=== PATIENT | male | born 1995 | race Caucasian/White ===

== ENCOUNTER 2017-08-08 00:13 | Emergency (ER) | payer OTHER ==
[2017-08-08] MEDS ORDERED: Ondansetron INJ* 2 MG/ML VIAL IV ONE (01:49)
[2017-08-08] MEDS ORDERED: NS 0.9% 1000 ML* 1,000 ML IV ONE (01:49)
[2017-08-08] MEDS ORDERED: Ketorolac INJ* 30 MG/ML 1 ML VIAL IV ONE (01:49)
[2017-08-08] MEDS ORDERED: Morphine INJ* 4 MG/ML 1 ML CARPUJECT IV ONE (01:50)
[2017-08-08] MEDS ORDERED: DOXYcycline CAP(*) 100 MG PO ONE (02:16)
--- NOTE | 2017-08-08 02:59 | ED ---
Bayron Gomez Alfonso, scribed for Magda Ibrahim MD on 08/08/17 at 0140 . Abdominal Pain/Male - HPI Summary HPI Summary: This patient is a 22 year old M presenting to [facility] with a chief complaint of right testicular pain since 3 weeks ago. The pain resolved, but became worse since 1899 today. The patient rates the pain 8/10 in severity. Symptoms alleviated by nothing. Patient reports right testicular swelling. Patient denies penile discharge, and dysuria. Marijuana use. He denies recent heavy lifting, and unprotected sex. - History of Current Complaint Chief Complaint: EDUrogenitalProblems Stated Complaint: RIGHT GROIN PAIN Time Seen by Provider: 08/08/17 01:15 Hx Obtained From: Patient Onset/Duration: Sudden Onset, Lasting Weeks - 3, Worse Since - 1899 today Timing: Constant Severity Currently: Moderate Pain Intensity: 8 Pain Scale Used: 0-10 Numeric Location: Other - right testicular Alleviating Factor(s): Nothing Associated Signs And Symptoms: Positive: Other - reports right testicular swelling. Patient denies penile discharge, and dysuria. - Allergies/Home Medications Allergies/Adverse Reactions: Allergies Allergy/AdvReac Type Severity Reaction Status Date / Time Amoxicillin Allergy Swelling Verified 08/08/17 00:27 Penicillins [PCN] Allergy Swelling Verified 08/08/17 00:27 PMH/Surg Hx/FS Hx/Imm Hx Endocrine/Hematology History: Denies: Hx Blood Disorders, Hx Diabetes, Hx Thyroid Disease Cardiovascular History: Denies: Hx Hypertension Respiratory History: Reports: Hx Asthma Denies: Hx Chronic Obstructive Pulmonary Disease (COPD) GI History: Denies: Hx Ulcer - Surgical History Surgery Procedure, Year, and Place: orthopedic and dental Infectious Disease History: No Infectious Disease History: Reports: Hx Clostridium Difficile - 2015 Denies: Hx Hepatitis, Hx Human Immunodeficiency Virus (HIV), Hx of Known/ Suspected MRSA, Hx Shingles, Hx Tuberculosis, Hx Known/Suspected VRE, Hx Known/ Suspected VRSA, History Other Infectious Disease, Traveled Outside the [place] in Last 30 Days - Family History Known Family History: Positive: Other - R&NC Family History: no medical issues in family lineage - Social History Alcohol Use: None Substance Use Type: Reports: Marijuana Smoking Status (MU): Never Smoked Tobacco Review of Systems Negative: Fever Positive: other - right testicular pain, right testicular swelling; negative penile discharge. Negative: dysuria All Other Systems Reviewed And Are Negative: Yes Physical Exam - Summary Physical Exam Summary: General: Well appearing, no pain distress Skin: Warm, Skin Color Reflects Adequate Perfusion, Dry Eyes: EOMI, JAX ENT: Pharynx normal, TMs normal Neck: Supple, nontender Respiratory: CTA, breath sounds present, no rhonchi, no wheezes, no rales Cardiovascular: RRR, no murmur, no rub, no gallop Abdomen: Soft, nontender, Non-distended, no guarding, no rebound Pelvic: Right Testicle: epididymis tenderness and normal size. Left Testicle: normal. Bowel: Present Musculoskeletal: YEMI, No edema Neuro: Sensory/motor intact, A&Ox3, CN intact 2-12 Psych: Affect/mood appropriate Triage Information Reviewed: Yes Vital Signs On Initial Exam: Initial Vitals Temp Pulse Resp BP Pulse Ox 98.5 F 81 18 111/73 98 08/08/17 00:22 08/08/17 00:22 08/08/17 00:22 08/08/17 00:22 08/08/17 00:22 Vital Signs Reviewed: Yes - [place] Coma Scale Coma Scale Total: 15 Diagnostics - Vital Signs Vital Signs Temp Pulse Resp BP Pulse Ox 08/08/17 00:22 98.5 F 81 18 111/73 98 - Laboratory Lab Statement: Any lab studies that have been ordered have been reviewed, and results considered in the medical decision making process. - Additional Comments Diagnostic Additional Comments: Scrotum US reveals, per radiologist, there is a tiny hyperechoic focus in the superior pole of the right testicle. Could represent a tiny calcification or tiny fatty deposit. There are two right epididymal cysts measuring 2 mm and 3 mm respectively. ED physician has reviewed this radiology report and agrees. Abdominal Pain Fem Course/Dx - Course Course Of Treatment: 22 yo male with recent pain in same testicle a week or two ago and had a neg sti workup and was placed on doxy with resolution of pain, pain that started tonight was much worse, neg u/s of testicle here but definite pain over epididymis. Pt will be started on pain meds and doxy again and f/u with [facility]/urology - Diagnoses Provider Diagnoses: Epididymitis Discharge - Discharge Plan Condition: Stable Disposition: HOME Prescriptions: DOXYcycline CAP(*) [DOXYcycline 100MG CAP(*)] 100 mg PO BID #28 cap HYDROcodone/ACETAMIN 5-325 MG* [[place] 5-325 TAB*] 1 tab PO Q8H PRN #9 tab MDD 3 PRN Reason: Pain Patient Education Materials: Testicle Pain (ED), Epididymitis (ED) Referrals: [facility] - Rip MARCUM [Primary Care Provider] - 3 Days Additional Instructions: RETURN TO THE EMERGENCY DEPARTMENT FOR CHANGING OR WORSENING SYMPTOMS. The documentation as recorded by the Bayron valdes Alfonso accurately reflects the service I personally performed and the decisions made by me, Magda Ibrahim MD.
[2017-08-08 03:28] VITALS: BP 116/75
--- NOTE | 2017-08-08 08:11 | RAD ---
INDICATION: Right testicular pain COMPARISON: None TECHNIQUE: Duplex interrogation of the scrotum was performed. FINDINGS: Testicles: The testicles are Normal in size size. There is at least one tiny right-sided testicular calcification consistent with testicular microlithiasis. This represents an incidental finding. There is no evidence of testicular mass. There is symmetric flow on Doppler interrogation. There is no evidence of torsion.. The right testis measures 4.1 x 2.2 x 2.9 cm and the left 4.8 x 2.2 x 2.2 cm. There is symmetric flow on Doppler interrogation. Epididymides: The epididymides are normal in size. There are several small right-sided epididymal cysts, one measuring 0.2 cm and the other 0.3 cm. There is symmetric flow on Doppler interrogation. The right epididymal head measures 1.0 x 1.5 cm and the left 1.1 x 1.5 cm. Hydroceles: None. Varicoceles: None. Other: None. IMPRESSION: NO EVIDENCE OF TESTICULAR MASS OR TORSION. TINY RIGHT-SIDED EPIDIDYMAL CYSTS.
== END 2017-08-08 03:32 | disposition home or self-care (01) ==
LOC: ED 00:13
DX: N45.1 Epididymitis (principal); J45.909 Unspecified asthma, uncomplicated; F12.90 Cannabis use, unspecified, uncomplicated
CPT/HCPCS: 76870; 96361; 96374; 96375; 99285; A9270-GY; J1885; J2270; J2405

== ENCOUNTER 2017-10-12 23:52 | Emergency (ER) | payer OTHER ==
[2017-10-12 23:58] VITALS: BP 130/61
== END 2017-10-13 02:41 | disposition left against medical advice (07) ==
LOC: ED 23:52
DX: R10.9 Unspecified abdominal pain (principal); Z53.21 Procedure and treatment not carried out due to patient leaving prior to being seen by health care provider

== ENCOUNTER 2017-10-13 12:19 | Emergency (ER) | payer OTHER ==
[2017-10-13 13:44] VITALS: BP 114/63
--- NOTE | 2017-10-13 14:35 | UC ---
UC General HPI - HPI Summary HPI Summary: EIGHT DAYS AGO DIAGNOSED WITH MESENTERIC ADENITIS; DISCHARGED FROM HOSPITAL ON SATURDAY. YESTERDAY HAD VOMITING AND DIARRHEA. VOMITING CHUNKS OF BLOOD YESTERDAY. HISTORY OF CDIFF 05/2016. - History of Current Complaint Chief Complaint: UCGI Stated Complaint: VOMITING, AND DIARRHEA Time Seen by Provider: 10/13/17 13:58 Hx Obtained From: Patient Onset/Duration: Gradual Onset, Lasting Days Onset Severity: Moderate Current Severity: Mild Pain Intensity: 0 Associated Signs & Symptoms: Positive: Diarrhea, Fever, Vomiting - HEMATEMESIS. Negative: Cough, Chest Pain - Allergy/Home Medications Allergies/Adverse Reactions: Allergies Allergy/AdvReac Type Severity Reaction Status Date / Time Amoxicillin Allergy Swelling Verified 10/13/17 13:44 Penicillins [PCN] Allergy Swelling Verified 10/13/17 13:44 Home Medications: Home Medications Escitalopram (NF) [Lexapro 20 mg (NF)] 20 mg PO DAILY 10/13/17 [History Confirmed 10/13/17] Ibuprofen TAB* [Motrin TAB* 800 MG] 800 mg PO Q8H PRN 10/13/17 [History Confirmed 10/13/17] PMH/Surg Hx/FS Hx/Imm Hx Previously Healthy: Yes - Surgical History Surgical History: Yes Surgery Procedure, Year, and Place: dental. appendix removed April 2017 - Family History Known Family History: Positive: None, Other - R&NC Family History: no medical issues in family lineage - Social History Occupation: Student Lives: With Family Alcohol Use: Occasionally Substance Use Type: Marijuana Smoking Status (MU): Never Smoked Tobacco - Immunization History Most Recent Influenza Vaccination: 2014 Most Recent Tetanus Shot: up to date Most Recent Pneumonia Vaccination: never Review of Systems Constitutional: Fever Skin: Negative Eyes: Negative ENT: Negative Respiratory: Negative Gastrointestinal: Vomiting - HEMATEMESIS, Diarrhea, Nausea Genitourinary: Negative Motor: Negative Neurovascular: Negative Musculoskeletal: Negative Neurological: Negative Psychological: Negative Is Patient Immunocompromised?: No All Other Systems Reviewed And Are Negative: Yes Physical Exam Triage Information Reviewed: Yes Appearance: No Pain Distress, Well-Nourished, Ill-Appearing Vital Signs: Initial Vital Signs Temp 99.1 F 10/13/17 13:36 Pulse 85 10/13/17 13:36 Resp 16 10/13/17 13:36 BP 114/63 10/13/17 13:36 Pulse Ox 100 12/03/17 13:36 Vital Signs Reviewed: Yes Eye Exam: Normal ENT Exam: Normal ENT: Positive: Normal ENT inspection, Hearing grossly normal, Pharynx normal, TMs normal Dental Exam: Normal Neck exam: Normal Neck: Positive: Supple, Nontender, No Lymphadenopathy Respiratory Exam: Normal Respiratory: Positive: Chest non-tender, Lungs clear, Normal breath sounds, No respiratory distress, No accessory muscle use Cardiovascular Exam: Normal Cardiovascular: Positive: RRR, No Murmur, Pulses Normal, Brisk Capillary Refill Abdomen Description: Positive: No Organomegaly, Soft. Negative: Nontender - DIFFUSELY TENDER Musculoskeletal Exam: Normal Musculoskeletal: Positive: Strength Intact, ROM Intact Neurological Exam: Normal Neurological: Positive: Alert Psychological Exam: Normal Skin Exam: Normal Course/Dx - Differential Dx - Multi-Symptom Differential Diagnoses: Metabolic Abnormality, Sepsis Provider Diagnoses: HEMATEMESIS; GASTROENTERITIS - Physician Notifications Instructed by Provider To: MD Will See In ED Discharge - Discharge Plan Condition: Stable Disposition: OTHER Discharge Disposition Comment: ADVISED TO GO TO ED, REFUSED AMBULANCE Patient Education Materials: Gastroenteritis (ED), Hematemesis (ED) Referrals: [facility] - Rip MARCUM [Primary Care Provider] - Additional Instructions: YOU HAVE REFUSED THE OFFER OF AMBULANCE TRANSPORT AND HAVE ELECTED TO GO TO THE EMERGENCY DEPARTMENT BY PRIVATE CAR. YOU ARE ADVISED TO PROCEED SAFELY, BUT DIRECTLY TO THE EMERGENCY DEPARTMENT FOR CONTINUED EVALUATION.
== END 2017-10-13 14:15 ==
LOC: UCEAST 12:19
DX: K52.9 Noninfective gastroenteritis and colitis, unspecified (principal); K92.0 Hematemesis
CPT/HCPCS: 99212; G0463

== ENCOUNTER 2017-10-13 14:33 | Emergency (ER) | payer OTHER ==
[2017-10-13] MEDS ORDERED: Morphine INJ* 4 MG/ML 1 ML CARPUJECT IV ONE ×2 (16:53→19:14)
[2017-10-13] MEDS ORDERED: Ondansetron INJ* 2 MG/ML VIAL IV ONE (16:53)
[2017-10-13] MEDS: NS 0.9% 1000 ML* 2,000 ML IV ONE (17:17)
[2017-10-13 17:33] LABS: Hematocrit 45 % (42-52); Hemoglobin 15.5 g/dl (14.0-18.0); Mean Corpuscular HGB Conc 35 g/dl (31-36); Mean Corpuscular Hemoglobin 31 pg (27-31); Mean Corpuscular Volume 90 fL (80-94); Mean Platelet Volume 8 um3 (7.4-10.4); Red Cell Distribution Width 13 % (10.5-15); White Blood Count 4.6 10^3/ul (3.5-10.8)
[2017-10-13 17:48] LABS: ALT 14 U/L (7-52); AST 19 U/L (13-39); Albumin 4.2 g/dL (3.2-5.2); Alkaline Phosphatase 56 U/L (34-104); Amylase 27 U/L (29-103); Anion Gap 8 mmol/L (2-11); Blood Urea Nitrogen 11 mg/dL (6-24); C Reactive Protein 9.56 mg/L (< 5.00); CO2 Carbon Dioxide 27 mmol/L (22-32); Chloride 101 mmol/L (101-111); EGFR African American 122.5 (>60); EGFR Non-African American 95.3 (>60); Globulin 2.9 g/dL (2-4); Glucose 92 mg/dL (70-100); Lipase < 10 U/L (11.0-82.0); Sodium 136 mmol/L (133-145); Total Protein 7.1 g/dL (6.4-8.9)
[2017-10-13 17:59] LABS: Urine Bacteria Absent (Absent); Urine Bilirubin Negative (Negative); Urine Glucose Negative (Negative); Urine Nitrite Negative (Negative)
[2017-10-13] MEDS ORDERED: Potassium Chlor TAB* 20 MEQ TAB.ER PO ONE (18:37)
--- NOTE | 2017-10-13 21:51 | ED ---
Owen Gomez Nikita, scribed for Shamar Gary MD on 10/13/17 at 2149 . Progress - Progress Note Progress Note: pt has not been able to provide stool sample for whole duration of stay in ED, no episodes of diarrhea here in ED. Because pt requests discharge at this time and feels well, pt given prescription for empiric vancomycin in case pt becomes symptomatic at home and encouraged to return to ED immediately. Also instructed to follow up with GI clinic for further workup of mild episgastric abdominal pain. Agrees to and understands dc instructions. Course/Dx - Diagnoses Provider Diagnoses: Diarrhea The documentation as recorded by the Owen valdes Nikita accurately reflects the service I personally performed and the decisions made by Abdirahman chapin Dong, MD.
[2017-10-13 22:03] VITALS: BP 119/40
--- NOTE | 2017-10-15 15:19 | ED ---
Alex Gomez Gabriel, scribed for Josiah Flores MD on 10/13/17 at 1651 . Abdominal Pain/Male - HPI Summary HPI Summary: This patient is a 22 year old M presenting to [facility] with a chief complaint of abd pain since the past two days. Patient reports diarrhea, vomiting (w/ black chunks), and fever. Pt also states that he has not been able to keep food down recently. Patient was sent to ED after being seen at [facility]. Also he has a history of CDIF. . - History of Current Complaint Hx Obtained From: Patient Onset/Duration: Still Present Timing: Constant Pain Intensity: 7 Pain Scale Used: 0-10 Numeric Associated Signs And Symptoms: Positive: Fever, Vomiting, Diarrhea <Josiah Flores - Last Filed: 10/13/17 19:55> <Shamar Gary - Last Filed: 10/13/17 21:49> - History of Current Complaint Chief Complaint: EDAbdPain Stated Complaint: ABD PAIN,V/D-SENT FROM [facility] Time Seen by Provider: 10/13/17 16:33 - Allergies/Home Medications Allergies/Adverse Reactions: Allergies Allergy/AdvReac Type Severity Reaction Status Date / Time Amoxicillin Allergy Swelling Verified 10/13/17 13:44 Penicillins [PCN] Allergy Swelling Verified 10/13/17 13:44 PMH/Surg Hx/FS Hx/Imm Hx Previously Healthy: No Endocrine/Hematology History: Denies: Hx Blood Disorders, Hx Diabetes, Hx Thyroid Disease Cardiovascular History: Denies: Hx Hypertension Respiratory History: Reports: Hx Asthma Denies: Hx Chronic Obstructive Pulmonary Disease (COPD) GI History: Denies: Hx Ulcer - Surgical History Surgery Procedure, Year, and Place: dental. appendix removed April 2017 Infectious Disease History: Yes Infectious Disease History: Reports: Hx Clostridium Difficile - 2016 Denies: Hx Hepatitis, Hx Human Immunodeficiency Virus (HIV), Hx of Known/ Suspected MRSA, Hx Shingles, Hx Tuberculosis, Hx Known/Suspected VRE, Hx Known/ Suspected VRSA, History Other Infectious Disease, Traveled Outside the [place] in Last 30 Days - Family History Known Family History: Positive: Other - R&NC Family History: no medical issues in family lineage - Social History Alcohol Use: Occasionally Substance Use Type: Reports: Marijuana Smoking Status (MU): Never Smoked Tobacco <Josiah Flores - Last Filed: 10/13/17 19:55> Review of Systems Positive: Fever Positive: Abdominal Pain, Vomiting - black chunks , Diarrhea All Other Systems Reviewed And Are Negative: Yes <Josiah Flores - Last Filed: 10/13/17 19:55> Physical Exam - Summary Physical Exam Summary: VITAL SIGNS: Reviewed. GENERAL: Patient is a well-developed and nourished male who is lying comfortable in the stretcher. ~Patient is not in any acute respiratory distress. HEAD AND FACE: Normocephalic and atraumatic. EYES: PERRLA, EOMI x 2, No injected conjunctiva. EARS: Hearing grossly intact. Ear canals and tympanic membranes are WNL. MOUTH: Oropharynx within normal limits. NECK: Supple, trachea is midline, no adenopathy, no JVD. CHEST: Symmetric, no tenderness at palpation LUNGS: Clear to auscultation bilaterally. No wheezing or crackles. CVS: RRR, S1 and S2 present, no murmurs or gallops appreciated. ABDOMEN: Soft, diffuse abdominal tenderness. No signs of distention. Positive bowel sounds. No rebound no guarding, and no masses palpated. No abdominal bruit or pulsations. EXTREMITIES: FROM in all major joints, no edema, no cyanosis or clubbing. NEURO: Alert and oriented x 3. No acute neurological deficits. Speech is normal. SKIN: Dry and warm Triage Information Reviewed: Yes Vital Signs On Initial Exam: Initial Vitals Temp Pulse Resp BP Pulse Ox 98.3 F 82 15 120/67 98 10/13/17 14:36 10/13/17 14:36 10/13/17 14:36 10/13/17 14:36 10/13/17 14:36 Vital Signs Reviewed: Yes - [place] Coma Scale Coma Scale Total: 15 <Josiah Flores - Last Filed: 10/13/17 19:55> Vital Signs On Initial Exam: Initial Vitals Temp Pulse Resp BP Pulse Ox 36.8 C 82 15 120/67 98 10/13/17 14:36 10/13/17 14:36 10/13/17 14:36 10/13/17 14:36 10/13/17 14:36 <Shamar Gary - Last Filed: 10/13/17 21:49> Diagnostics - Vital Signs Vital Signs Temp Pulse Resp BP Pulse Ox 10/13/17 14:36 98.3 F 82 15 120/67 98 - Laboratory Result Diagrams: 10/13/17 17:20 10/13/17 17:20 Lab Statement: Any lab studies that have been ordered have been reviewed, and results considered in the medical decision making process. <Josiah Flores - Last Filed: 10/13/17 19:55> - Vital Signs Vital Signs Temp Pulse Resp BP Pulse Ox 10/13/17 19:24 17 10/13/17 19:00 66 111/54 98 10/13/17 18:30 63 115/70 99 10/13/17 18:00 55 117/59 88 10/13/17 17:30 65 109/69 98 10/13/17 17:22 63 100 10/13/17 17:21 112/61 10/13/17 17:16 16 10/13/17 14:36 36.8 C 82 15 120/67 98 - Laboratory Lab Results: Lab Results 10/13/17 10/13/17 10/13/17 Range/Units 17:20 17:20 17:20 WBC 4.6 (3.5-10.8) 10^3/ul RBC 5.00 (4.0-5.4) 10^6/ul Hgb 15.5 (14.0-18.0) g/dl Hct 45 (42-52) % MCV 90 (80-94) fL MCH 31 (27-31) pg MCHC 35 (31-36) g/dl RDW 13 (10.5-15) % Plt Count 186 (150-450) 10^3/ul MPV 8 (7.4-10.4) um3 Neut % (Auto) 52.7 (38-83) % Lymph % (Auto) 21.0 L (25-47) % [place] % (Auto) 21.7 H (1-9) % Eos % (Auto) 4.2 (0-6) % Baso % (Auto) 0.4 (0-2) % Absolute Neuts (auto) 2.4 (1.5-7.7) 10^3/ul Absolute Lymphs (auto) 1.0 (1.0-4.8) 10^3/ul Absolute Monos (auto) 1.0 H (0-0.8) 10^3/ul Absolute Eos (auto) 0.2 (0-0.6) 10^3/ul Absolute Basos (auto) 0 (0-0.2) 10^3/ul Absolute Nucleated RBC 0 10^3/ul Nucleated RBC % 0 Sodium 136 (133-145) mmol/L Potassium 3.0 L (3.5-5.0) mmol/L Chloride 101 (101-111) mmol/L Carbon Dioxide 27 (22-32) mmol/L Anion Gap 8 (2-11) mmol/L BUN 11 (6-24) mg/dL Creatinine 1.00 (0.67-1.17) mg/dL Est GFR ( Amer) 122.5 (>60) Est GFR (Non-Af Amer) 95.3 (>60) BUN/Creatinine Ratio 11.0 (8-20) Glucose 92 (70-100) mg/dL Lactic Acid 1.6 (0.5-2.0) mmol/L Calcium 9.0 (8.6-10.3) mg/dL Total Bilirubin 0.80 (0.2-1.0) mg/dL AST 19 (13-39) U/L ALT 14 (7-52) U/L Alkaline Phosphatase 56 (34-104) U/L C-Reactive Protein 9.56 H (< 5.00) mg/L Total Protein 7.1 (6.4-8.9) g/dL Albumin 4.2 (3.2-5.2) g/dL Globulin 2.9 (2-4) g/dL Albumin/Globulin Ratio 1.4 (1-3) Amylase 27 L (29-103) U/L Lipase < 10 L (11.0-82.0) U/L Urine Color Urine Appearance Urine pH (5-9) Ur Specific Cushing (1.010-1.030) Urine Protein (Negative) Urine Ketones (Negative) Urine Blood (Negative) Urine Nitrate (Negative) Urine Bilirubin (Negative) Urine Urobilinogen (Negative) Ur Leukocyte Esterase (Negative) Urine WBC (Auto) (Absent) Urine RBC (Auto) (Absent) Urine Bacteria (Absent) Urine Glucose (Negative) 10/13/17 Range/Units 17:40 WBC (3.5-10.8) 10^3/ul RBC (4.0-5.4) 10^6/ul Hgb (14.0-18.0) g/dl Hct (42-52) % MCV (80-94) fL MCH (27-31) pg MCHC (31-36) g/dl RDW (10.5-15) % Plt Count (150-450) 10^3/ul MPV (7.4-10.4) um3 Neut % (Auto) (38-83) % Lymph % (Auto) (25-47) % [place] % (Auto) (1-9) % Eos % (Auto) (0-6) % Baso % (Auto) (0-2) % Absolute Neuts (auto) (1.5-7.7) 10^3/ul Absolute Lymphs (auto) (1.0-4.8) 10^3/ul Absolute Monos (auto) (0-0.8) 10^3/ul Absolute Eos (auto) (0-0.6) 10^3/ul Absolute Basos (auto) (0-0.2) 10^3/ul Absolute Nucleated RBC 10^3/ul Nucleated RBC % Sodium (133-145) mmol/L Potassium (3.5-5.0) mmol/L Chloride (101-111) mmol/L Carbon Dioxide (22-32) mmol/L Anion Gap (2-11) mmol/L BUN (6-24) mg/dL Creatinine (0.67-1.17) mg/dL Est GFR ( Amer) (>60) Est GFR (Non-Af Amer) (>60) BUN/Creatinine Ratio (8-20) Glucose (70-100) mg/dL Lactic Acid (0.5-2.0) mmol/L Calcium (8.6-10.3) mg/dL Total Bilirubin (0.2-1.0) mg/dL AST (13-39) U/L ALT (7-52) U/L Alkaline Phosphatase (34-104) U/L C-Reactive Protein (< 5.00) mg/L Total Protein (6.4-8.9) g/dL Albumin (3.2-5.2) g/dL Globulin (2-4) g/dL Albumin/Globulin Ratio (1-3) Amylase (29-103) U/L Lipase (11.0-82.0) U/L Urine Color Yellow Urine Appearance Clear Urine pH 6.0 (5-9) Ur Specific [place] 1.008 L (1.010-1.030) Urine Protein Negative (Negative) Urine Ketones Negative (Negative) Urine Blood 2+ H (Negative) Urine Nitrate Negative (Negative) Urine Bilirubin Negative (Negative) Urine Urobilinogen Negative (Negative) Ur Leukocyte Esterase Negative (Negative) Urine WBC (Auto) Trace(0-5/hpf) (Absent) Urine RBC (Auto) 1+(3-5/hpf) H (Absent) Urine Bacteria Absent (Absent) Urine Glucose Negative (Negative) Result Diagrams: 10/13/17 17:20 10/13/17 17:20 Lab Statement: Any lab studies that have been ordered have been reviewed, and results considered in the medical decision making process. <Shamar Gary - Last Filed: 10/13/17 21:49> Abdominal Pain Fem Course/Dx - Course Assessment/Plan: This patient is a 22 year old M presenting to [facility] with a chief complaint of abd pain since the past two days. Patient reports diarrhea, vomiting (w/ black chunks), and fever. Pt also states that he has not been able to keep food down recently. Patient was sent to ED after being seen at [facility]. Also he has a history of CDIF. Labs without any significant abnormalities except for potassium of 3, CRP of 9.5, UA neg for UTI. In the ED course an IV access was obtained. Pt was placed in a clinical research monitor. Pt was started with IV fluids. .Pt was hydrated with iv fluids, given zofram for n/v and morphine for pain. Given potassium chloride for hypokalemia. Waiting for stool sample to rule out cdiff therefore patient will be signed out to Dr. Gary to follow up stool samples and dispo. At this point stable. In the ED course, pt has been improving and is stable. Pt is hemodynamically stable, alert and oriented x3. <Josiah Flores - Last Filed: 10/13/17 19:55> <Shamar Gary - Last Filed: 10/13/17 21:49> - Diagnoses Provider Diagnoses: Diarrhea Discharge <Josiah Flores - Last Filed: 10/13/17 19:55> <Shamar Gary - Last Filed: 10/13/17 21:49> - Discharge Plan Condition: Improved Disposition: HOME Prescriptions: Omeprazole CAP* [Prilosec CAP* 20 MG] 20 mg PO DAILY #30 cap. Vancomycin CAP* 125 mg PO QID #56 cap Patient Education Materials: Colitis (ED) Referrals: [facility] - Rip MARCUM [Primary Care Provider] - Marko Pace MD [Medical Doctor] - Additional Instructions: PLEASE START VANCOMYCIN ORALLY IMMEDIATELY IF YOU HAVE WORSENING EPISODES OF DIARRHEA AND RETURN TO THE ER PLEASE MAKE AN APPOINTMENT FIRST THING IN THE MORNING TO BE SEEN BY A GI DOCTOR WITHIN 1 WEEK PLEASE RETURN TO THE EMERGENCY ROOM IF YOU HAVE ANY WORSENING OR CONCERNING SYMPTOMS PLEASE MAKE AN APPOINTMENT FIRST THING IN THE MORNING TO BE SEEN BY YOUR PRIMARY CARE DOCTOR WITHIN 1 WEEK The documentation as recorded by the Alex valdes Gabriel accurately reflects the service I personally performed and the decisions made by me, Josiah Flores MD.
== END 2017-10-13 22:05 | disposition home or self-care (01) ==
LOC: ED 14:33
DX: R19.7 Diarrhea, unspecified (principal); R50.9 Fever, unspecified; R11.10 Vomiting, unspecified
CPT/HCPCS: 36415; 80053; 81003; 81015; 82150; 83605; 83690; 85025; 86140; 96374; 96375; 99283; A9270-GY; J2270; J2405

== ENCOUNTER 2017-10-14 18:09 | Emergency (ER) | payer OTHER ==
[2017-10-14 19:36] LABS: Hematocrit 43 % (42-52); Hemoglobin 14.6 g/dl (14.0-18.0); Mean Corpuscular HGB Conc 34 g/dl (31-36); Mean Corpuscular Hemoglobin 31 pg (27-31); Mean Corpuscular Volume 91 fL (80-94); Mean Platelet Volume 8 um3 (7.4-10.4); Red Blood Count 4.76 10^6/ul (4.0-5.4); Red Cell Distribution Width 13 % (10.5-15); White Blood Count 5.7 10^3/ul (3.5-10.8)
[2017-10-14 19:50] LABS: Albumin 4.1 g/dL (3.2-5.2); BUN/Creatinine Ratio 8.6 (8-20); EGFR African American 133.2 (>60); EGFR Non-African American 103.6 (>60); Globulin 2.9 g/dL (2-4); Potassium 4.1 mmol/L (3.5-5.0); Total Bilirubin 0.3 mg/dL (0.2-1.0)
[2017-10-14 20:33] LABS: Direct Bilirubin 0.1 mg/dL (0.03-0.18); Indirect Bilirubin 0.2 mg/dL (0.3-1.0)
[2017-10-14] MEDS ORDERED: Morphine INJ* 4 MG/ML 1 ML CARPUJECT IV ONE (21:58)
[2017-10-14] MEDS ORDERED: Ondansetron INJ* 2 MG/ML VIAL IV ONE (21:58)
[2017-10-15] MEDS ORDERED: Iohexol 300* (CONTRAST) 10 ML SDV IV ONE (00:03)
[2017-10-15] MEDS ORDERED: oxyCODONE/Acetamin 5/325 MG* TAB PO ONE (01:41)
[2017-10-15 02:50] VITALS: BP 137/84
--- NOTE | 2017-10-15 08:15 | RAD ---
CLINICAL HISTORY: Vomiting, diarrhea and abdominal pain. Relevant surgical history includes appendectomy April 2017. COMPARISON: None TECHNIQUE: Contrast enhanced CT examination of the abdomen and pelvis from the lung bases through the initial tuberosities. The patient received 93 mL Omnipaque 300 intravenously prior to imaging.The patient received oral contrast as well prior to imaging. FINDINGS: VISUALIZED LUNG BASES: The visualized lung bases are grossly clear. There is no pleural effusion. ABDOMEN AND PELVIS: The liver, spleen, pancreas and adrenal glands are grossly normal in appearance. The gallbladder is normal. The kidneys are normal in appearance without focal mass, calcification or signs of hydronephrosis. There are contrast has progressed as far as the sigmoid colon. The small and large bowel are not distended. There is questionable mild wall thickening of the terminal ileum measuring 6 mm in thickness (axial image 62 and coronal image 35). In accordance with the patient's surgical history, the appendix is not visualized. The gas and stool-filled colon is normal in appearance. Best depicted on the coronal plane images there are innumerable top normal mesenteric lymph nodes measuring up to 9 mm in short axis diameter (coronal image 42 and axial image 37 for example). The pelvic viscera is normal in appearance. The abdominal aorta and iliac arteries are normal in course and diameter. There are no sinister bone lesions. IMPRESSION: Mesenteric adenitis with questionable terminal ileitis.
--- NOTE | 2017-10-15 08:39 | ED ---
Progress - Progress Note Progress Note: Pt's stool cx + by immunoassay. He presented w/ h/o diarrhea - these findings correlate. Other stool cx - for c. diff. Was advised to f/u w/ GI. no changes at this time. Course/Dx - Diagnoses Provider Diagnoses: Acute abdominal pain
--- NOTE | 2017-10-15 09:12 | ED ---
Rafa Gomez Benjamin, scribed for Shamar Gary MD on 10/14/17 at 2059 . Abdominal Pain/Male - HPI Summary HPI Summary: 22yo male who was seen at the ED yesterday for abdominal pain and diarrhea returns today with same symptoms. Pt has prior hx of C. diff. and had hx of repetitive epigastric abdominal pain. Pt had multiple episodes of watery, non- bloody diarrhea, with one episode this morning. Pt reports a mild subjective fever that has been resolved after taking Tylenol at home. No N/D. - History of Current Complaint Chief Complaint: EDAbdPain Stated Complaint: VOMITING/DIARRHEA/ABD PAIN Hx Obtained From: Patient Onset/Duration: Sudden Onset, Lasting Days, Still Present Timing: Intermittent Severity Initially: Moderate Severity Currently: Moderate Pain Intensity: 6 Pain Scale Used: 0-10 Numeric Location: Epigastric Radiates: No Aggravating Factor(s): Nothing Alleviating Factor(s): Nothing Associated Signs And Symptoms: Positive: Fever, Diarrhea. Negative: Constipation, Blood in Stool, Nausea, Vomiting - Allergies/Home Medications Allergies/Adverse Reactions: Allergies Allergy/AdvReac Type Severity Reaction Status Date / Time Amoxicillin Allergy Swelling Verified 10/13/17 13:44 Penicillins [PCN] Allergy Swelling Verified 10/13/17 13:44 PMH/Surg Hx/FS Hx/Imm Hx Endocrine/Hematology History: Denies: Hx Blood Disorders, Hx Diabetes, Hx Thyroid Disease Cardiovascular History: Denies: Hx Hypertension Respiratory History: Reports: Hx Asthma Denies: Hx Chronic Obstructive Pulmonary Disease (COPD) GI History: Denies: Hx Ulcer - Surgical History Surgery Procedure, Year, and Place: dental. appendix removed April 2017 Infectious Disease History: No Infectious Disease History: Reports: Hx Clostridium Difficile - 2015 Denies: Hx Hepatitis, Hx Human Immunodeficiency Virus (HIV), Hx of Known/ Suspected MRSA, Hx Shingles, Hx Tuberculosis, Hx Known/Suspected VRE, Hx Known/ Suspected VRSA, History Other Infectious Disease, Traveled Outside the [place] in Last 30 Days - Family History Known Family History: Positive: Hypertension - Social History Occupation: Student Alcohol Use: Occasionally Substance Use Type: Reports: Marijuana Smoking Status (MU): Never Smoked Tobacco Review of Systems Positive: Fever Eyes: Negative ENT: Negative Cardiovascular: Negative Respiratory: Negative Positive: Abdominal Pain, Diarrhea, Nausea. Negative: Vomiting Genitourinary: Negative Positive: no symptoms reported Musculoskeletal: Negative Skin: Negative Neurological: Negative Psychological: Normal All Other Systems Reviewed And Are Negative: Yes Physical Exam - Summary Physical Exam Summary: Appearance: Well-appearing, Well-nourished Skin: Warm Eyes: Normal ENT: Normal Neck: Supple, nontender Respiratory: Clear to auscultation Cardiovascular: Normal Abdomen: Soft, Mild tenderness at epigastric to umbilical abdomen bilaterally, without rebound or guarding. Bowel: Present Musculoskeletal: Normal, Strength/ROM Intact. Normal distal pulses bilaterally. Neurological: Normal, A&Ox3 Psychiatric: Normal Triage Information Reviewed: Yes Vital Signs On Initial Exam: Initial Vitals Temp Pulse Resp BP Pulse Ox 97.2 F 106 16 135/70 99 10/14/17 18:17 10/14/17 18:17 10/14/17 18:17 10/14/17 18:17 10/14/17 18:17 Vital Signs Reviewed: Yes Diagnostics - Vital Signs Vital Signs Temp Pulse Resp BP Pulse Ox 10/14/17 18:17 97.2 F 106 16 135/70 99 - Laboratory Lab Results: Lab Results 10/14/17 10/14/17 Range/Units 19:25 19:25 WBC 5.7 (3.5-10.8) 10^3/ul RBC 4.76 (4.0-5.4) 10^6/ul Hgb 14.6 (14.0-18.0) g/dl Hct 43 (42-52) % MCV 91 (80-94) fL MCH 31 (27-31) pg MCHC 34 (31-36) g/dl RDW 13 (10.5-15) % Plt Count 200 (150-450) 10^3/ul MPV 8 (7.4-10.4) um3 Neut % (Auto) 44.2 (38-83) % Lymph % (Auto) 23.8 L (25-47) % [place] % (Auto) 20.6 H (1-9) % Eos % (Auto) 10.8 H (0-6) % Baso % (Auto) 0.6 (0-2) % Absolute Neuts (auto) 2.5 (1.5-7.7) 10^3/ul Absolute Lymphs (auto) 1.4 (1.0-4.8) 10^3/ul Absolute Monos (auto) 1.2 H (0-0.8) 10^3/ul Absolute Eos (auto) 0.6 (0-0.6) 10^3/ul Absolute Basos (auto) 0 (0-0.2) 10^3/ul Absolute Nucleated RBC 0 10^3/ul Nucleated RBC % 0.1 Sodium 138 (133-145) mmol/L Potassium 4.1 (3.5-5.0) mmol/L Chloride 103 (101-111) mmol/L Carbon Dioxide 32 (22-32) mmol/L Anion Gap 3 (2-11) mmol/L BUN 8 (6-24) mg/dL Creatinine 0.93 (0.67-1.17) mg/dL Est GFR ( Amer) 133.2 (>60) Est GFR (Non-Af Amer) 103.6 (>60) BUN/Creatinine Ratio 8.6 (8-20) Glucose 87 (70-100) mg/dL Calcium 9.0 (8.6-10.3) mg/dL Total Bilirubin 0.30 (0.2-1.0) mg/dL Direct Bilirubin 0.10 (0.03-0.18) mg/dL Indirect Bilirubin 0.2 L (0.3-1.0) mg/dL AST 18 (13-39) U/L ALT 14 (7-52) U/L Alkaline Phosphatase 58 (34-104) U/L Total Protein 7.0 (6.4-8.9) g/dL Albumin 4.1 (3.2-5.2) g/dL Globulin 2.9 (2-4) g/dL Albumin/Globulin Ratio 1.4 (1-3) Result Diagrams: 10/14/17 19:25 10/14/17 19:25 Lab Statement: Any lab studies that have been ordered have been reviewed, and results considered in the medical decision making process. - CT CT A/P CT Interpretation: Positive (See Comments) - Mesentric adenitis, possibly related to terminal ileitis. CT Interpretation Completed By: Radiologist - ED physician has reviewed this radiology report and agrees. Re-Evaluation - Re-Evaluation First Eval Re-Evaluation Time: 01:41 Change: Improved Comment: Pt states feeling slightly better Abdominal Pain Fem Course/Dx - Course Course Of Treatment: instructed to fu with GI physician and to stay hydrated, instructed to hold off on abx therapy for now because of history of prior c diff associated with abx, agrees to and understnads dc instructions - Diagnoses Provider Diagnoses: Acute abdominal pain Discharge - Discharge Plan Condition: Improved Disposition: HOME Prescriptions: oxyCODONE/Acetamin 5/325 MG* [Percocet 5/325 TAB*] 1 tab PO Q6H PRN #12 tab MDD 4 tabs PRN Reason: Pain - Moderate To Severe Patient Education Materials: Acute Abdominal Pain (ED) Forms: *School Release Referrals: [facility] - Rip MARCUM [Primary Care Provider] - Marko Pace MD [Medical Doctor] - Additional Instructions: PLEASE MAKE AN APPOINTMENT TO BE SEEN BY A GI DOCTOR WITHIN 1 WEEK PLEASE RETURN IMMEDIATELY TO THE ER IF YOU HAVE ANY WORSENING OR CONCERNING SYMPTOMS PLEASE MAKE AN APPOINTMENT TO BE SEEN BY YOUR PRIMARY CARE DOCTOR WITHIN 1 WEEK The documentation as recorded by the Rafa valeds Benjamin accurately reflects the service I personally performed and the decisions made by me, Shamar Gary MD.
== END 2017-10-15 02:52 | disposition home or self-care (01) ==
LOC: ED 18:09
DX: R10.9 Unspecified abdominal pain (principal); R50.9 Fever, unspecified; R19.7 Diarrhea, unspecified
CPT/HCPCS: 36415; 74177; 80053; 82248; 83630; 84376; 85025; 87493; 96374; 96375; 99283; A9270-GY; J2270; J2405; Q9967

== ENCOUNTER 2018-02-19 10:54 | Emergency (ER) | payer OTHER ==
[2018-02-19] MEDS ORDERED: NS 0.9% 1000 ML* 1,000 ML IV ONE ×2 (11:01→11:58)
[2018-02-19 11:35] LABS: ABS Basophils 0 10^3/ul (0-0.2); ABS Eosinophils 0.3 10^3/ul (0-0.6); ABS Lymphocytes 1.9 10^3/ul (1.0-4.8); ABS Neutrophils 3.3 10^3/ul (1.5-7.7); ABS Nucleated RBC 0 10^3/ul; Eosinophil % 4.4 % (0-6); Hematocrit 44 % (42-52); Hemoglobin 15.2 g/dl (14.0-18.0); Lymphocyte % 28.7 % (25-47); Mean Corpuscular HGB Conc 35 g/dl (31-36); Mean Corpuscular Hemoglobin 31 pg (27-31); Mean Corpuscular Volume 91 fL (80-94); Nucleated Red Blood Cells % 0.1; Platelet Count 180 10^3/ul (150-450); Red Blood Count 4.84 10^6/ul (4.0-5.4); Red Cell Distribution Width 13 % (10.5-15); White Blood Count 6.5 10^3/ul (3.5-10.8)
[2018-02-19 11:44] LABS: INR 0.99 (0.77-1.02)
--- NOTE | 2018-02-19 11:51 | RAD ---
INDICATION: Chest pain COMPARISON: None. TECHNIQUE: Single AP portable view of the chest was obtained. FINDINGS: Image quality is compromised due to the relative inferiority of a portable chest x-ray. The heart and mediastinum exhibit normal size and contour. The lungs are grossly clear. There is no evidence of a large pleural effusion. Visualized bones are normal for the patient's age. IMPRESSION: No radiographic evidence for acute cardiopulmonary abnormality on this portable chest x-ray.
[2018-02-19 11:52] LABS: EGFR Non-African American 110.8 (>60)
[2018-02-19] MEDS ORDERED: Ondansetron INJ* 2 MG/ML VIAL IV ONE (11:59)
[2018-02-19] MEDS ORDERED: Pantoprazole IV* 40 MG IV ONE (12:34)
[2018-02-19] MEDS ORDERED: Morphine INJ* 4 MG/ML 1 ML SYRINGE (NEW SYRINGE VERSION) IV ONE (12:34)
[2018-02-19] MEDS ORDERED: Al Hydrox/Mg Hydrox/Simet LIQ* 30 ML UDC PO ONE (12:35)
[2018-02-19] MEDS ORDERED: Lidocaine 2% VISCOUS* 15 ML UDC PO ONE (12:35)
[2018-02-19] MEDS ORDERED: Morphine VIAL* 4 MG/ML VIAL (1 ml vial) IV ONE (12:40)
[2018-02-19] MEDS ORDERED: Iohexol 300* (CONTRAST) 10 ML SDV IV ONE (13:58)
--- NOTE | 2018-02-19 15:37 | RAD ---
INDICATION: Abdominal pain COMPARISON: CT October 14, 2017 TECHNIQUE: Axial source images were obtained from the hemidiaphragms to the symphysis pubis following administration of oral and intravenous contrast. 100 mL Omnipaque 300 was utilized. Coronal and sagittal reconstructed images were acquired. Lung bases: The lung bases are clear. Liver: The liver is normal in size. There are no masses. There is no ductal dilatation. Gallbladder: There are no calcified gallstones. There is no evidence of wall thickening or pericholecystic fluid. Spleen: The spleen is normal in size. There are no masses. Pancreas: There is no focal pancreatic mass or ductal dilatation. Adrenal glands: There is no evidence of adrenal mass. Kidneys: The kidneys are normal in size and position. There are prompt nephrograms and there is prompt excretion bilaterally. There are no renal parenchymal masses. There is no evidence of nephrolithiasis. Adenopathy: There is persistent mild diffuse prominence of the mesenteric lymph nodes suggestive of mesenteric lymphadenitis. Fluid collections: There are no free or localized fluid collections. Vessels:There are no significant atherosclerotic changes involving the aorta. There is no focal aneurysm. The iliac vessels are normal in caliber. The IVC appears normal. GI tract: There are no acute CT bowel findings. There is no obstruction. The stomach and small bowel appear normal. The lower GI tract is normal. The cecum, ileocecal valve, and terminal ileum appear normal. The appendix is visualized and appear normal. Pelvic organs: The prostate and seminal vesicles appear normal Bladder: There are no bladder masses. Abdominal and pelvic soft tissues: The extraperitoneal abdominal and pelvic soft tissues appear normal.. Osseous structures: There are no acute osseous findings. Other: None IMPRESSION: SUSPECT MESENTERIC LYMPHADENITIS, UNCHANGED. TRACE FREE FLUID IS DECREASED SINCE THE EARLIER STUDY
--- NOTE | 2018-02-19 16:09 | ED ---
Ganesh Gomez Thomas, scribed for Leonel Arnett MD on 02/19/18 at 1138 . Abdominal Pain/Male - HPI Summary HPI Summary: The patient is a 23 year old male who complains of left-sided abdominal pain that began 30 minutes prior to arrival. The pain began when he was at his apartment and he got up to go to the door. The patient also complains of intermittent left-sided chest pain, a pressure headache, and a sensation as if he about to pass out. He reports feelings of disorientation. He denies fevers, chills, and nausea. He denies any similar prior episodes. - History of Current Complaint Chief Complaint: EDChestPainROMI Stated Complaint: CHEST PAIN Time Seen by Provider: 02/19/18 10:59 Hx Obtained From: Patient Onset/Duration: Lasting Minutes - 30, Still Present Timing: Constant Severity Currently: Moderate Location: Other - left-sided abd Aggravating Factor(s): Nothing Alleviating Factor(s): Nothing Associated Signs And Symptoms: Positive: Chest Pain, Other - Disorientation, headache, near-syncope. Negative: Fever, Nausea - Allergies/Home Medications Allergies/Adverse Reactions: Allergies Allergy/AdvReac Type Severity Reaction Status Date / Time AMOXICILLIN Allergy Swelling Uncoded 02/19/18 11:12 PENICILLIN Allergy Swelling Uncoded 02/19/18 11:13 PMH/Surg Hx/FS Hx/Imm Hx Endocrine/Hematology History: Denies: Hx Blood Disorders, Hx Diabetes, Hx Thyroid Disease Cardiovascular History: Denies: Hx Hypertension Respiratory History: Reports: Hx Asthma Denies: Hx Chronic Obstructive Pulmonary Disease (COPD) GI History: Denies: Hx Ulcer History: Denies: Hx Dialysis, Hx Renal Disease - Surgical History Surgery Procedure, Year, and Place: dental. appendix removed April 2017 Infectious Disease History: Reports: Hx Clostridium Difficile - 2015 Denies: Hx Hepatitis, Hx Human Immunodeficiency Virus (HIV), Hx of Known/ Suspected MRSA, Hx Shingles, Hx Tuberculosis, Hx Known/Suspected VRE, Hx Known/ Suspected VRSA, History Other Infectious Disease - Family History Known Family History: Positive: Hypertension, Other - R&NC Family History: no medical issues in family lineage - Social History Alcohol Use: Occasionally Substance Use Type: Reports: Marijuana Smoking Status (MU): Never Smoked Tobacco Review of Systems Negative: Fever, Chills Positive: Chest Pain Positive: Abdominal Pain. Negative: Nausea Neurological: Other - Disorientation Positive: Syncope - near All Other Systems Reviewed And Are Negative: Yes Physical Exam - Summary Physical Exam Summary: General: well-appearing, mild pain distress Skin: warm, color reflects adequate perfusion, dry Head: normal Eyes: EOMI, JAX ENT: normal Neck: supple, nontender Respiratory: CTA, breath sounds present Cardiovascular: RRR Abdomen: soft, nontender Bowel: present Musculoskeletal: normal, strength/ROM intact Neurological: normal, sensory/motor intact, A&O x3 Psychological: He appears anxious. Triage Information Reviewed: Yes Vital Signs On Initial Exam: Initial Vitals Temp Pulse Resp BP Pulse Ox 98.1 F 70 17 123/64 100 02/19/18 11:15 02/19/18 11:15 02/19/18 11:15 02/19/18 11:15 02/19/18 11:15 Vital Signs Reviewed: Yes Diagnostics - Vital Signs Vital Signs Temp Pulse Resp BP Pulse Ox 02/19/18 13:30 71 14 132/71 99 02/19/18 13:00 79 15 139/76 99 02/19/18 12:51 17 02/19/18 12:30 72 15 130/66 100 02/19/18 12:00 82 17 116/61 98 02/19/18 11:30 73 22 113/56 98 02/19/18 11:23 72 17 98 02/19/18 11:21 123/64 02/19/18 11:15 98.1 F 70 17 123/64 100 - Laboratory Lab Results: Lab Results 02/19/18 02/19/18 02/19/18 Range/Units 11:01 11:20 11:20 WBC 6.5 (3.5-10.8) 10^3/ul RBC 4.84 (4.0-5.4) 10^6/ul Hgb 15.2 (14.0-18.0) g/dl Hct 44 (42-52) % MCV 91 (80-94) fL MCH 31 (27-31) pg MCHC 35 (31-36) g/dl RDW 13 (10.5-15) % Plt Count 180 (150-450) 10^3/ul MPV 7.0 L (7.4-10.4) um3 Neut % (Auto) 50.5 (38-83) % Lymph % (Auto) 28.7 (25-47) % [place] % (Auto) 15.9 H (0-7) % Eos % (Auto) 4.4 (0-6) % Baso % (Auto) 0.5 (0-2) % Absolute Neuts (auto) 3.3 (1.5-7.7) 10^3/ul Absolute Lymphs (auto) 1.9 (1.0-4.8) 10^3/ul Absolute Monos (auto) 1.0 H (0-0.8) 10^3/ul Absolute Eos (auto) 0.3 (0-0.6) 10^3/ul Absolute Basos (auto) 0 (0-0.2) 10^3/ul Absolute Nucleated RBC 0 10^3/ul Nucleated RBC % 0.1 INR (Anticoag Therapy) 0.99 (0.77-1.02) APTT 32.6 (26.0-36.3) seconds D-Dimer, Quantitative < 200 (Less Than 230) ng/mL Sodium (139-145) mmol/L Potassium (3.5-5.0) mmol/L Chloride (101-111) mmol/L Carbon Dioxide (22-32) mmol/L Anion Gap (2-11) mmol/L BUN (6-24) mg/dL Creatinine (0.67-1.17) mg/dL Est GFR ( Amer) (>60) Est GFR (Non-Af Amer) (>60) BUN/Creatinine Ratio (8-20) Glucose (70-100) mg/dL Lactic Acid (0.5-2.0) mmol/L Calcium (8.6-10.3) mg/dL Magnesium (1.9-2.7) mg/dL Total Bilirubin (0.2-1.0) mg/dL AST (13-39) U/L ALT (7-52) U/L Alkaline Phosphatase (34-104) U/L Total Creatine Kinase (10-223) U/L CK-MB (CK-2) (0.6-6.3) ng/mL Troponin I (<0.04) ng/mL C-Reactive Protein (< 5.00) mg/L B-Natriuretic Peptide 7 ( - 100) pg/mL Total Protein (6.4-8.9) g/dL Albumin (3.2-5.2) g/dL Globulin (2-4) g/dL Albumin/Globulin Ratio (1-3) Lipase (11.0-82.0) U/L TSH (0.34-5.60) mcIU/mL 02/19/18 02/19/18 02/19/18 Range/Units 11:27 11:27 13:37 WBC (3.5-10.8) 10^3/ul RBC (4.0-5.4) 10^6/ul Hgb (14.0-18.0) g/dl Hct (42-52) % MCV (80-94) fL MCH (27-31) pg MCHC (31-36) g/dl RDW (10.5-15) % Plt Count (150-450) 10^3/ul MPV (7.4-10.4) um3 Neut % (Auto) (38-83) % Lymph % (Auto) (25-47) % Mayes % (Auto) (0-7) % Eos % (Auto) (0-6) % Baso % (Auto) (0-2) % Absolute Neuts (auto) (1.5-7.7) 10^3/ul Absolute Lymphs (auto) (1.0-4.8) 10^3/ul Absolute Monos (auto) (0-0.8) 10^3/ul Absolute Eos (auto) (0-0.6) 10^3/ul Absolute Basos (auto) (0-0.2) 10^3/ul Absolute Nucleated RBC 10^3/ul Nucleated RBC % INR (Anticoag Therapy) (0.77-1.02) APTT (26.0-36.3) seconds D-Dimer, Quantitative (Less Than 230) ng/mL Sodium 137 L (139-145) mmol/L Potassium 3.5 (3.5-5.0) mmol/L Chloride 100 L (101-111) mmol/L Carbon Dioxide 30 (22-32) mmol/L Anion Gap 7 (2-11) mmol/L BUN 8 (6-24) mg/dL Creatinine 0.87 (0.67-1.17) mg/dL Est GFR ( Amer) 142.5 (>60) Est GFR (Non-Af Amer) 110.8 (>60) BUN/Creatinine Ratio 9.2 (8-20) Glucose 96 (70-100) mg/dL Lactic Acid 0.7 (0.5-2.0) mmol/L Calcium 9.2 (8.6-10.3) mg/dL Magnesium 2.2 (1.9-2.7) mg/dL Total Bilirubin 0.70 (0.2-1.0) mg/dL AST 24 (13-39) U/L ALT 15 (7-52) U/L Alkaline Phosphatase 63 (34-104) U/L Total Creatine Kinase 251 H (10-223) U/L CK-MB (CK-2) 3.4 (0.6-6.3) ng/mL Troponin I 0.00 0.00 (<0.04) ng/mL C-Reactive Protein < 1.00 (< 5.00) mg/L B-Natriuretic Peptide ( - 100) pg/mL Total Protein 7.1 (6.4-8.9) g/dL Albumin 4.0 (3.2-5.2) g/dL Globulin 3.1 (2-4) g/dL Albumin/Globulin Ratio 1.3 (1-3) Lipase 11 (11.0-82.0) U/L TSH 1.86 (0.34-5.60) mcIU/mL Result Diagrams: 02/19/18 11:20 18 11:27 Lab Statement: Any lab studies that have been ordered have been reviewed, and results considered in the medical decision making process. - Radiology CXR Xray Interpretation: No Acute Changes - IMPRESSION: No radiographic evidence for acute cardiopulmonary abnormality on this portable chest x-ray. Dr. Arnett has reviewed this report. Radiology Interpretation Completed By: Radiologist - CT CT Abdomen/Pelvis CT Interpretation: Positive (See Comments) - IMPRESSION: SUSPECT MESENTERIC LYMPHADENITIS, UNCHANGED. TRACE FREE FLUID IS DECREASED SINCE THE EARLIER STUDY. Dr. Arnett has reviewed this report. CT Interpretation Completed By: Radiologist - EKG 11:18 Cardiac Rate: NL EKG Rhythm: Sinus Rhythm - at [address] Segment: Normal Ectopy: None Re-Evaluation - Re-Evaluation First Eval Re-Evaluation Time: 15:58 Comment: Results discussed. Patient will be discharged. Abdominal Pain Fem Course/Dx - Course Course Of Treatment: Medications reviewed. Allergies noted. IMPROVED IN ED. CHEST PAIN WENT AWAY AND LOCALIZED TO THE UPPER ABDOMEN. THE ABDOMINAL PAIN WENT AWAY IN THE ED. DISCUSSED RESULTS WITH THE PATIENT. F/U [facility]; RETURN TO ED IF WORSEN. - Diagnoses Provider Diagnoses: Chest pain, Abdominal pain Discharge - Sign-Out/Discharge Documenting (check all that apply): Discharge - Discharge Plan Condition: Stable Disposition: HOME Prescriptions: Omeprazole CAP* [Prilosec CAP* 20 MG] 20 mg PO BID #30 cap. Patient Education Materials: Chest Pain (ED), Acute Abdominal Pain (ED) Referrals: [facility] - Rip MARCUM [Primary Care Provider] - Additional Instructions: FOLLOW UP WITH [facility]. RETURN TO THE EMERGENCY DEPARTMENT FOR ANY WORSENING OF YOUR CONDITION; PAIN, SHORTNESS OF BREATH, FEVER, YOU FEEL ILL OR QUESTIONS OR CONCERNS. - Billing Disposition and Condition Condition: STABLE Disposition: HOME The documentation as recorded by the Ganesh valdes Thomas accurately reflects the service I personally performed and the decisions made by me, Leonel Arnett MD.
[2018-02-19 16:38] VITALS: BP 129/68
== END 2018-02-19 16:37 | disposition home or self-care (01) ==
LOC: ED 10:54
DX: R07.89 Other chest pain (principal); R10.9 Unspecified abdominal pain; R51 Headache; R41.0 Disorientation, unspecified; R55 Syncope and collapse; J45.909 Unspecified asthma, uncomplicated; Z88.0 Allergy status to penicillin
CPT/HCPCS: 36415; 71045; 74177; 80053; 82550; 82553; 83605; 83690; 83735; 83880; 84443; 84484; 85025; 85379; 85610; 85730; 86140; 93005; 96374; 96375; 99283; A9270-GY; J2270; J2405; Q9967

== ENCOUNTER 2018-09-13 22:55 | Emergency (ER) | payer OTHER ==
[2018-09-14] MEDS ORDERED: Fluorescein Sodium TOPICAL* 1 MG TEST STRIP ONE (02:05)
[2018-09-14] MEDS ORDERED: Tetracaine 0.5% OPTH.SOL 4 ML* 1 DROP BTL ONE (02:05)
--- NOTE | 2018-09-14 02:16 | ED ---
Throat Pain/Nasal Congestion - HPI Summary HPI Summary: This patient is a 23 year old M presenting to [facility] with a chief complaint of burning right eye pain since 22:00 on 09/14/2018. The patient rates the pain 9/ 10 in severity. Patient reports difficulty seeing out of right eye secondary to swelling of his eyelids. Patient denies fever, chills, nausea, and vomiting. Patient reports taking out his contact lenses upon feeling right eye discomfort. He believes that he scratched his eye while taking his contacts out. - History of Current Complaint Chief Complaint: EDEyeProblem Time Seen by Provider: 09/14/18 01:53 EST Hx Obtained From: Patient Onset/Duration: Sudden Onset, Lasting Hours - Since 22:00 on 09/14/2018 - Allergies/Home Medications Allergies/Adverse Reactions: Allergies Allergy/AdvReac Type Severity Reaction Status Date / Time AMOXICILLIN Allergy Swelling Uncoded 02/19/18 11:12 PENICILLIN Allergy Swelling Uncoded 02/19/18 11:13 PMH/Surg Hx/FS Hx/Imm Hx Endocrine/Hematology History: Denies: Hx Blood Disorders, Hx Diabetes, Hx Thyroid Disease Cardiovascular History: Denies: Hx Hypertension Respiratory History: Reports: Hx Asthma Denies: Hx Chronic Obstructive Pulmonary Disease (COPD) GI History: Denies: Hx Ulcer History: Denies: Hx Dialysis, Hx Renal Disease - Surgical History Surgery Procedure, Year, and Place: dental. appendix removed April 2017 Infectious Disease History: No Infectious Disease History: Reports: Hx Clostridium Difficile - 2016, Traveled Outside the [place] in Last 30 Days Denies: Hx Hepatitis, Hx Human Immunodeficiency Virus (HIV), Hx of Known/ Suspected MRSA, Hx Shingles, Hx Tuberculosis, Hx Known/Suspected VRE, Hx Known/ Suspected VRSA, History Other Infectious Disease - Family History Known Family History: Positive: Hypertension Family History: no medical issues in family lineage - Social History Occupation: Student Alcohol Use: Occasionally Substance Use Type: Reports: Marijuana Smoking Status (MU): Never Smoked Tobacco Review of Systems Negative: Fever, Chills Positive: Other - Right eye pain Negative: Vomiting, Nausea All Other Systems Reviewed And Are Negative: Yes Physical Exam - Summary Physical Exam Summary: GENERAL: Patient is a well-developed and nourished __(M)__ who is lying comfortable in the stretcher. Patient is not in any acute respiratory distress. HEAD AND FACE: Normocephalic EYES: Both eyes are injected. Yellow crusting on the right side. with periobital edema on right Visual acuity is L 20/30, R 20/40 and both eyes are 20/25. EARS: Hearing grossly intact. MOUTH: Oropharynx within normal limits. NECK: Supple, trachea is midline, no adenopathy, no JVD, no carotid bruit. CHEST: Symmetric, no tenderness at palpation LUNGS: Clear to auscultation bilaterally. No wheezing or crackles. CVS: Regular rate and rhythm, S1 and S2 present, no murmurs or gallops appreciated. ABDOMEN: Soft, non-tender. Bowel sounds are normal. No abdominal abnormal pulsations. EXTREMITIES: Full ROM in all major joints, no edema, no cyanosis or clubbing. NEURO: Alert and oriented x 3. No acute neurological deficits. Speech is normal and follows commands. SKIN: Dry and warm Triage Information Reviewed: Yes Vital Signs On Initial Exam: Initial Vitals Temp Pulse Resp BP Pulse Ox 98.1 F 86 16 102/70 100 09/13/18 23:04 09/13/18 23:04 09/13/18 23:04 09/13/18 23:04 09/13/18 23:04 Vital Signs Reviewed: Yes Diagnostics - Vital Signs Vital Signs Temp Pulse Resp BP Pulse Ox 09/14/18 01:05 EST 98.3 F 86 16 127/72 100 09/14/18 01:03 EDT 98.3 F 86 16 127/72 100 09/13/18 23:04 98.1 F 86 16 102/70 100 - Laboratory Result Diagrams: 09/14/18 02:27 09/14/18 02:27 Lab Statement: Any lab studies that have been ordered have been reviewed, and results considered in the medical decision making process. - CT Right Orbit CT CT Interpretation Completed By: Radiologist - 04:43. 1. Mild right periorbital soft tissue swelling may represent preseptal cellulitis. No fluid collection. 2. No post septal cellulitis or abscess. ED Physician has reviewed this imaging report. EENT Course/Dx - Course Course Of Treatment: This patient is a 23 year old M presenting to [facility] with a chief complaint of burning right eye pain since 22:00 on 09/14/2018. Workup was remarkable in the right orbital CT for: Mild right periorbital soft tissue swelling may represent preseptal cellulitis. Lab results were remarkable for MPV = 7.1 L, Billings = 12.8 H, and Absolute Billings 0.9 H. I instructed the patient not to wear contact lens for now and to wash his hands well before touching his eyes. He will follow up with opthamologist. - Diagnoses Provider Diagnoses: Periorbital cellulitis of right eye Discharge - Sign-Out/Discharge Documenting (check all that apply): Patient Departure - D/C - Discharge Plan Condition: Stable Disposition: HOME Prescriptions: Ciprofloxacin 0.3% OPTH.RADHA* [Cipro 0.3% Opth*] 2 drop RIGHT EYE Q4H #1 btl Sulfamethox/Trimethoprim DS* [Bactrim DS 800/160 TAB*] 1 tab PO BID #20 tab Patient Education Materials: Periorbital Cellulitis in Adults (ED) Referrals: [facility] [Outside] - 3 Days Pradeep Wilson MD [Medical Doctor] - As Soon As Possible Additional Instructions: Do not wear contact lenses and be sure to wash your hands well. Follow up with Dr. Wilson, opthamologist, as soon as possible. Follow up with your primary care physician in 1-3 days. RETURN TO THE EMERGENCY DEPARTMENT FOR CHANGING OR WORSENING SYMPTOMS. - Billing Disposition and Condition Condition: STABLE Disposition: Home - Attestation Statements Document Initiated by Rafael: Yes Documenting Scribe: Petar Mathew Provider For Whom Rafael is Documenting (Include Credential): Yadira Laws MD Scribe Attestation: IPetar, scribed for Yadira Laws MD on 09/14/18 at 0541. Scribe Documentation Reviewed: Yes Provider Attestation: The documentation as recorded by the Petar valdes accurately reflects the service I personally performed and the decisions made by me, Yadira Laws MD
[2018-09-14] MEDS ORDERED: cefTRIAXone(*) 2 GM in NS 0.9% 100 ML* 100 ML IVPB ONE (02:27)
[2018-09-14] MEDS ORDERED: Ketorolac INJ* 30 MG/ML 1 ML VIAL IV PUSH ONE (02:28)
[2018-09-14 02:39] LABS: ABS Basophils 0 10^3/ul (0-0.2); ABS Eosinophils 0.2 10^3/ul (0-0.6); ABS Lymphocytes 2.7 10^3/ul (1.0-4.8); ABS Monocytes 0.9 10^3/ul (0-0.8); ABS Neutrophils 3.3 10^3/ul (1.5-7.7); ABS Nucleated RBC 0 10^3/ul; Hematocrit 42 % (42-52); Hemoglobin 14.5 g/dl (14.0-18.0); Lymphocyte % 37.8 % (25-47); Mean Corpuscular HGB Conc 35 g/dl (31-36); Mean Corpuscular Hemoglobin 31 pg (27-31); Mean Corpuscular Volume 91 fL (80-94); Mean Platelet Volume 7.1 fL (7.4-10.4); Nucleated Red Blood Cells % 0.1; Platelet Count 186 10^3/ul (150-450); Red Blood Count 4.63 10^6/ul (4.00-5.40); Red Cell Distribution Width 13 % (10.5-15); White Blood Count 7.3 10^3/ul (3.5-10.8)
[2018-09-14 02:53] LABS: EGFR Non-African American 98.9 (>60)
[2018-09-14] MEDS ORDERED: Iohexol 300* (CONTRAST) 10 ML SDV IV ONE (03:33)
--- NOTE | 2018-09-14 04:44 | RAD ---
EXAM: CT Orbits With Intravenous Contrast EXAM DATE/TIME: 09/14/2018 3:34 AM CLINICAL HISTORY: 23 years old, male; Pain; Eye pain; Right; Additional info: Eval for cellulitis TECHNIQUE: Axial computed tomography images of the orbits with intravenous contrast. All CT scans at this facility use at least one of these dose optimization techniques: automated exposure control; mA and/or kV adjustment per patient size (includes targeted exams where dose is matched to clinical indication); or iterative reconstruction. Coronal and sagittal reformatted images were created and reviewed. CONTRAST: 75 ml of OMNI 300 administered intravenously. COMPARISON: No relevant prior studies available. FINDINGS: Orbits: Normal globes. No post septal inflammatory change or fluid collection. Sinuses: Mild paranasal sinus disease. Bones/joints: No acute fracture. Soft tissues: Mild right periorbital soft tissue swelling. No drainable fluid collection. IMPRESSION: 1. Mild right periorbital soft tissue swelling may represent preseptal cellulitis. No fluid collection. 2. No post septal cellulitis or abscess. To contact [facility] with a general question: [facility] - [phone] For direct physician to physician contact: Physician Hotline - [phone] [facility] [place] ([facility] Facility ID #[id number])
[2018-09-14 05:00] VITALS: BP 122/67
== END 2018-09-14 05:11 | disposition home or self-care (01) ==
LOC: ED 22:55
DX: L03.213 Periorbital cellulitis (principal); Z88.0 Allergy status to penicillin
CPT/HCPCS: 36415; 70481; 80053; 85025; 86141; 96365; 96375; 99284; A9270-GY; J0696; J1885; Q9967

== ENCOUNTER 2019-09-15 17:40 | Emergency (ER) | payer OTHER ==
[2019-09-15 19:56] VITALS: BP 121/49
--- NOTE | 2019-09-15 20:12 | UC ---
Abdominal Pain Male HPI - HPI Summary HPI Summary: 24 year old male with PMH + for asthma, MH, presents with vomiting starting this morning, body aches, fever this AM. no diarrhea, loose stools, no abdominal pain. S/P appy. no recent illnesses. Ate chicken sandwich last night at 9, nothing in AM vomited "large amount" in AM. - History of Current Complaint Chief Complaint: UCGI Stated Complaint: VOMITING Time Seen by Provider: 09/15/19 20:05 Hx Obtained From: Patient Onset/Duration: Sudden Onset, Lasting Hours, Resolved Severity Initially: Mild Severity Currently: Mild Pain Intensity: 5 Pain Scale Used: 0-10 Numeric Radiates: No Associated Signs And Symptoms: Positive: Fever - this AM 100.7, Decreased Appetite, Vomiting. Negative: Cough, Chest Pain, Blood in Stool, Urinary Symptoms, Diarrhea, Penile Discharge - Allergies/Home Medications Allergies/Adverse Reactions: Allergies Allergy/AdvReac Type Severity Reaction Status Date / Time amoxicillin Allergy Swelling Verified 09/15/19 19:56 Penicillins Allergy Swelling Verified 09/15/19 19:56 Home Medications: Home Medications ARIPiprazole TAB* [Abilify TAB*] 2.5 mg PO DAILY 09/15/19 [History Confirmed ] buPROPion TAB* [Wellbutrin TAB*] 300 mg PO DAILY 09/15/19 [History Confirmed 03/29] busPIRone TAB* [Buspar TAB *] 09/15/19 [History Confirmed 09/15/19] PMH/Surg Hx/FS Hx/Imm Hx Previously Healthy: Yes - Surgical History Surgical History: Yes Surgery Procedure, Year, and Place: dental. appendix removed April 2017 - Family History Known Family History: Positive: Hypertension, Non-Contributory Family History: no medical issues in family lineage - Social History Alcohol Use: Occasionally Substance Use Type: None Smoking Status (MU): Never Smoked Tobacco - Immunization History Most Recent Influenza Vaccination: 2014 Most Recent Tetanus Shot: up to date Most Recent Pneumonia Vaccination: never Review of Systems All Other Systems Reviewed And Are Negative: Yes Constitutional: Positive: Fever, Chills, Fatigue Gastrointestinal: Positive: Vomiting, Nausea. Negative: Diarrhea Is Patient Immunocompromised?: No Physical Exam Triage Information Reviewed: Yes Appearance: Well-Appearing, No Pain Distress, Well-Nourished Vital Signs: Initial Vital Signs Temp 97.8 F 09/15/19 19:52 Pulse 84 09/15/19 19:52 Resp 16 09/15/19 19:52 BP 121/49 09/15/19 19:52 Pulse Ox 98 09/15/19 19:52 Vital Signs Reviewed: Yes Eyes: Positive: Conjunctiva Clear ENT: Positive: Hearing grossly normal Abdomen Description: Positive: No Organomegaly, Soft, Other: - mild ttp over epigastric area. Negative: CVA Tenderness (R), CVA Tenderness (L), Distended, Guarding, Hepatomegaly, McBurney's Point Tenderness, Splenomegaly Bowel Sounds: Positive: Other: - NABS x 4 Musculoskeletal Exam: Normal Psychological Exam: Normal Abd Pain Male Course/Dx - Course Course Of Treatment: Nausea/ vomiting likely gastritis - Low fat/ low residue, bland diet over next few days- white crackers, white bread, applesauce, chicken noodle soup. avoid spicey foods. Gradually increase - Increase fluid intake to prevent dehydration, avoid sugary foods or artificial sweeteners - Tylenol as needed for pain - Zofran as needed for nausea - Differential Dx/Clinical Impression Differential Diagnosis/HQI/PQRI: Appendicitis Provider Diagnosis: Nausea & vomiting Discharge ED - Sign-Out/Discharge Documenting (check all that apply): Patient Departure All imaging exams completed and their final reports reviewed: No Studies - Discharge Plan Condition: Good Disposition: HOME Prescriptions: Ondansetron ODT TAB* [Zofran 4 MG Odt TAB*] 4 mg PO Q8H PRN #6 tab.odt PRN Reason: Nausea Patient Education Materials: Acute Nausea and Vomiting (ED) Forms: *Work Release Referrals: [facility] [Outside] No Primary Care Phys,NOPCP [Primary Care Provider] - Additional Instructions: - Low fat/ low residue, bland diet over next few days- white crackers, white bread, applesauce, chicken noodle soup. avoid spicey foods. Gradually increase - Increase fluid intake to prevent dehydration, avoid sugary foods or artificial sweeteners - Tylenol as needed for pain - Zofran as needed for nausea - Billing Disposition and Condition Condition: GOOD Disposition: Home
[2019-09-15] MEDS ORDERED: Ondansetron ODT TAB* 4 MG SL ONE (20:22)
== END 2019-09-15 21:10 | disposition home or self-care (01) ==
LOC: UCEAST 17:40
DX: R11.2 Nausea with vomiting, unspecified (principal); J45.909 Unspecified asthma, uncomplicated
CPT/HCPCS: 99212; A9270-GY; G0463

== ENCOUNTER 2019-12-23 16:35 | Emergency (ER) | payer OTHER ==
[2019-12-23 18:47] VITALS: BP 120/66
[2019-12-23 19:11] LABS: Influenza A Molecular Negative (Negative); Influenza B Molecular Negative (Negative)
--- NOTE | 2019-12-23 19:25 | UC ---
Throat Pain/Nasal Elvin HPI - HPI Summary HPI Summary: 24-year-old college male who is had sore throat and fever since yesterday. - History of Current Complaint Chief Complaint: UCRespiratory Stated Complaint: SORE THROAT Time Seen by Provider: 12/23/19 19:03 Hx Obtained From: Patient Onset/Duration: Gradual Onset Severity: Mild Pain Intensity: 3 Cough: None Associated Signs & Symptoms: Positive: Fever - Allergies/Home Medications Allergies/Adverse Reactions: Allergies Allergy/AdvReac Type Severity Reaction Status Date / Time amoxicillin Allergy Swelling Verified 12/23/19 18:47 Penicillins Allergy Swelling Verified 12/23/19 18:47 Home Medications: Home Medications Fluticasone NASAL SPRAY 50MCG* [Flonase NASAL SPRAY 50MCG*] 1 spray PO DAILY 10/30 [History Confirmed 12/23/19] traZODone TAB* [Desyrel TAB*] 50 mg PO DAILY 12/23/19 [History Confirmed ] PMH/Surg Hx/FS Hx/Imm Hx Previously Healthy: Yes - Surgical History Surgical History: Yes Surgery Procedure, Year, and Place: dental. appendix removed April 2017 - Family History Known Family History: Positive: Hypertension, Non-Contributory Family History: no medical issues in family lineage - Social History Occupation: Student Lives: Dormitory/Roommates Alcohol Use: Occasionally Substance Use Type: None Smoking Status (MU): Former Smoker - Immunization History Most Recent Influenza Vaccination: 2014 Most Recent Tetanus Shot: up to date Most Recent Pneumonia Vaccination: never Review of Systems All Other Systems Reviewed And Are Negative: Yes Constitutional: Positive: Fever, Chills ENT: Positive: Sore Throat Is Patient Immunocompromised?: No Physical Exam Triage Information Reviewed: Yes Appearance: Well-Appearing, No Pain Distress, Well-Nourished Vital Signs: Initial Vital Signs Temp 98.3 F 12/23/19 18:40 Pulse 88 12/23/19 18:40 Resp 16 12/23/19 18:40 BP 120/66 12/23/19 18:40 Pulse Ox 97 12/23/19 18:40 Vital Signs Reviewed: Yes Eyes: Positive: Conjunctiva Clear ENT: Positive: Pharyngeal erythema, TMs normal, Tonsillar swelling, Uvula midline. Negative: Tonsillar exudate, Trismus, Muffled voice, Hoarse voice Neck: Positive: Supple, Nontender, Enlarged Nodes @ - Mildly enlarged tonsillar lymph nodes bilaterally. Respiratory: Positive: Lungs clear, Normal breath sounds, No respiratory distress, No accessory muscle use Cardiovascular: Positive: RRR, No Murmur, Pulses Normal, Brisk Capillary Refill Abdomen Description: Positive: Nontender, No Organomegaly, Soft Bowel Sounds: Positive: Present Musculoskeletal Exam: Normal Neurological Exam: Normal Psychological Exam: Normal Skin Exam: Normal Throat Pain/Nasal Course/Dx - Course Course Of Treatment: Patient is comfortable here. Rapid strep test was positive. - Differential Dx/Diagnosis Provider Diagnosis: Strep pharyngitis Discharge ED - Sign-Out/Discharge Documenting (check all that apply): Patient Departure All imaging exams completed and their final reports reviewed: No Studies - Discharge Plan Condition: Good Disposition: HOME Prescriptions: Azithromyxin MARIAN (NF) [Z-Marian (Zithromax) 250 mg tabs #6] 2 tab PO .TODAY, THEN 1 DAILY #6 tab Ondansetron TAB* [Zofran 4 MG Tab*] 4 mg PO Q6H PRN #10 tab PRN Reason: Nausea Patient Education Materials: Strep Throat (DC) Referrals: No Primary Care Phys,NOPCP [Primary Care Provider] - [facility] - Rip MARCUM [[employer], APPLICATION, OTHER] - Additional Instructions: Increase fluids, change toothbrush in 24 hours, warm saltwater gargles, throat lozenges as needed. Follow-up with [facility] if no improvement in 3 or 4 days. Use the Zofran sparingly for nausea because it can interact with the other medications you have. - Billing Disposition and Condition Condition: GOOD Disposition: Home
[2019-12-23] MEDS ORDERED: Ondansetron ODT TAB* 4 MG SL ONE (19:35)
== END 2019-12-23 19:49 | disposition home or self-care (01) ==
LOC: UCEAST 16:35
DX: J02.0 Streptococcal pharyngitis (principal); Z88.0 Allergy status to penicillin; Z88.2 Allergy status to sulfonamides; Z87.891 Personal history of nicotine dependence
CPT/HCPCS: 87651; 99212; A9270-GY; G0463